=== PATIENT | male | born 1940 | race Caucasian/White ===

== ENCOUNTER → 2021-06-27 | Outpatient (CLI) | payer MEDICARE ==
[~2021-06-27] MED LIST: ACET325T26 PO; ALBU18HF INH; ASPI-963 PO; ATOR-2 PO; ATOR10TA9 PO; CALC-112 PO; CARV25TA12 PO; CLOP75TA PO; FLUT12AE INH; FLUTICASONE; FURO40TA6 PO; GLUC1CAP40 PO; INSU100I11 SQ-INSULIN; LATA2.5D4 EACHEYE; LISI40TA9 PO; LISI5TAB7 PO; METH10TA6 PO; METO50TA82 PO; MEXI150C PO; MULT-658 PO; POTA20TA6 PO; SPIR25TA PO; TIMO1DRO6 EACHEYE
== END | disposition home or self-care (01) ==
LOC: CVU 10:42
PROVIDERS: ATTEND Student in an Organized Health Care Education/Training Program
DX: I08.0 Rheumatic disorders of both mitral and aortic valves (principal); I11.9 Hypertensive heart disease without heart failure; E78.5 Hyperlipidemia, unspecified; I25.2 Old myocardial infarction; I47.2 Ventricular tachycardia; I25.10 Atherosclerotic heart disease of native coronary artery without angina pectoris; I25.5 Ischemic cardiomyopathy; Z95.0 Presence of cardiac pacemaker
CPT/HCPCS: 93306; 93356